=== PATIENT | female | born 1965 | race Hispanic/Latino ===

== ENCOUNTER 2017-09-08 13:34 | Outpatient (CLI) | payer BC | END 2017-09-08 13:35 | disposition home or self-care (01) | LOC: BICRAD 13:34 | PROVIDERS: ATTEND Specialist | DX: R07.9 Chest pain, unspecified (principal) | CPT/HCPCS: 36415; 71046; 85025; 86710 ==

== ENCOUNTER 2017-10-20 09:46 | Outpatient (CLI) | payer BC ==
--- NOTE | 2017-10-20 11:35 | ULT ---
ULTRASOUND ABDOMEN: Date: 10/20/17 HISTORY: Abdominal pain. FINDINGS: There is mildly increased echogenicity of the liver consistent with fatty infiltration. No focal mass or intrahepatic ductal dilatation is seen. The spleen is normal, measuring 11.3 cm. No gallstones, g allbladder wall thickening, or pericholecystic fluid is seen. The common duct measures 5.0 mm in diam eter. The pancreas and aorta are not satisfactorily visualized due to overlying bowel gas. Visualized portions of the IVC are unremarkable. The kidneys are unremarkable. No free fluid is seen. IMPRESSION: 1. Fatty liver. 2. No evidence of cholelithiasis. POS: [facility]
== END 2017-10-20 09:47 | disposition home or self-care (01) ==
LOC: ULT 09:46
PROVIDERS: ATTEND Family Medicine
DX: R10.84 Generalized abdominal pain (principal); K76.0 Fatty (change of) liver, not elsewhere classified
CPT/HCPCS: 76700

== ENCOUNTER 2017-12-29 15:15 | Outpatient (CLI) | payer BC | END 2017-12-29 15:16 | disposition home or self-care (01) | LOC: BICMRI 15:15 | PROVIDERS: ATTEND Specialist | DX: M47.22 Other spondylosis with radiculopathy, cervical region (principal) | CPT/HCPCS: 72141 ==

== ENCOUNTER 2018-02-07 10:56 | Outpatient (CLI) | payer BC | END 2018-02-07 10:57 | disposition home or self-care (01) | LOC: BICMAMMO 10:56 | PROVIDERS: ATTEND Family Medicine | DX: Z12.31 Encounter for screening mammogram for malignant neoplasm of breast (principal) | CPT/HCPCS: 77063; 77067 ==

== ENCOUNTER 2019-07-09 10:06 | Outpatient (CLI) | payer BC ==
--- NOTE | 2019-07-09 10:20 | RAD ---
XR Chest Pa Lat STANDARD HISTORY: Acute bronchitis COMPARISON: None FINDINGS: The heart size is normal. The lungs are well expanded without focal areas of consolidation, pneumothorax or pleural effusions. There are degenerative changes in the spine. IMPRESSION: No radiographic evidence of acute cardiopulmonary process.
== END 2019-07-09 10:07 | disposition home or self-care (01) ==
LOC: BICRAD 10:06
PROVIDERS: ATTEND Family Medicine
DX: J20.9 Acute bronchitis, unspecified (principal)
CPT/HCPCS: 36415; 71046; 85025; 86710

== ENCOUNTER 2019-09-07 09:14 | Outpatient (CLI) | payer BC ==
--- NOTE | 2019-09-07 10:23 | RAD ---
2 VIEWS CHEST: Date: 09/07/2019 COMPARISON: 07/09/2019. HISTORY: Acute bronchitis. FINDINGS: Two views of the chest show normal sized cardiomediastinal silhouette. There is no evidence of consol idation, mass, or pleural effusion. Degenerative changes are seen in the spine. IMPRESSION: No evidence of acute cardiopulmonary disease. POS: [facility]
== END 2019-09-07 09:15 | disposition home or self-care (01) ==
LOC: BICRAD 09:14
PROVIDERS: ATTEND Family Medicine
DX: J20.1 Acute bronchitis due to Hemophilus influenzae (principal)
CPT/HCPCS: 71046

== ENCOUNTER 2020-01-11 17:00 | Outpatient (CLI) | payer BC | END 2020-01-11 17:01 | disposition home or self-care (01) | LOC: SLEEPLAB 17:00 | PROVIDERS: ATTEND Internal Medicine Critical Care Medicine | DX: G47.33 Obstructive sleep apnea (adult) (pediatric) (principal); R53.83 Other fatigue; E66.9 Obesity, unspecified; K21.9 Gastro-esophageal reflux disease without esophagitis; R06.83 Snoring; R09.02 Hypoxemia | CPT/HCPCS: 95801 ==

== ENCOUNTER 2020-02-27 14:33 | Outpatient (CLI) | payer BC ==
--- NOTE | 2020-02-27 15:35 | MMO ---
Bilateral MAMMO Bilat Screen [facility]. CLINICAL HISTORY: Patient is 54 years old and is seen for screening. The patient has no family history of breast cancer. The patient has no personal history of cancer. VIEWS: The views performed were: bilateral craniocaudal with tomosynthesis and bilateral mediolateral oblique with tomosynthesis. FILMS COMPARED: The present examination has been compared to prior imaging studies performed at [facility] on 03/26/2010, 05/02/2012, 02/13/2014 and 02/07/2018. This study has been interpreted with the assistance of computer-aided detection. MAMMOGRAM FINDINGS: The breasts are almost entirely fat. There are no suspicious masses, suspicious calcifications, or new areas of architectural distortion. IMPRESSION: THERE IS NO MAMMOGRAPHIC EVIDENCE OF MALIGNANCY. A ROUTINE FOLLOW-UP MAMMOGRAM IN 1 YEAR IS RECOMMENDED. THE RESULTS OF THIS EXAM WERE SENT TO THE PATIENT. ACR BI-RADS Category 1 - Negative MAMMOGRAPHY NOTE: 1. A negative mammogram report should not delay a biopsy if a dominant of clinically suspicious mass is present. 2. Approximately 10% to 15% of breast cancers are not detected by mammography. 3. Adenosis and dense breasts may obscure an underlying neoplasm. Reported by: JAYLENE MORALES MD Electonically Signed: [id number]
== END 2020-02-27 14:34 | disposition home or self-care (01) ==
LOC: BICMAMMO 14:33
PROVIDERS: ATTEND Family Medicine
DX: Z12.31 Encounter for screening mammogram for malignant neoplasm of breast (principal)
CPT/HCPCS: 77063; 77067

== ENCOUNTER 2021-06-01 14:53 | Outpatient (CLI) | payer BC | END 2021-06-01 14:54 | disposition home or self-care (01) | LOC: BICMRI 14:53 | PROVIDERS: ATTEND Anesthesiology | DX: M47.26 Other spondylosis with radiculopathy, lumbar region (principal); M48.061 Spinal stenosis, lumbar region without neurogenic claudication; M48.07 Spinal stenosis, lumbosacral region; Q06.4 Hydromyelia; M47.817 Spondylosis without myelopathy or radiculopathy, lumbosacral region | CPT/HCPCS: 72148 ==

== ENCOUNTER 2021-09-30 12:42 | Outpatient (CLI) | payer BC ==
[~2021-09-30 12:42] MED LIST: Magnevist 469MG/ML 20 ML VIAL ONE
== END 2021-09-30 12:43 | disposition home or self-care (01) ==
LOC: TBSIIMAG 12:42
PROVIDERS: ATTEND Anesthesiology
DX: M54.15 Radiculopathy, thoracolumbar region (principal); M47.24 Other spondylosis with radiculopathy, thoracic region
CPT/HCPCS: 72157; A9579

== ENCOUNTER 2023-05-18 12:25 | Outpatient (CLI) | payer BC | END 2023-05-18 12:26 | disposition home or self-care (01) | LOC: BICMAMMO 12:25 | PROVIDERS: ATTEND Family Medicine | DX: Z12.31 Encounter for screening mammogram for malignant neoplasm of breast (principal) | CPT/HCPCS: 77063; 77067 ==

== ENCOUNTER 2025-05-20 12:37 | Outpatient (CLI) | payer BC | END 2025-05-20 12:38 | disposition home or self-care (01) | LOC: BICRAD 12:37 | PROVIDERS: ATTEND Family Medicine | DX: R05.9 Cough, unspecified (principal); M47.812 Spondylosis without myelopathy or radiculopathy, cervical region; M40.50 Lordosis, unspecified, site unspecified | CPT/HCPCS: 71046; 72040 ==